=== PATIENT | female | born 1990 | race Two or more races ===

== ENCOUNTER 2023-11-24 09:48 | Outpatient (REF) | payer OTHER, SELFPAY ==
--- NOTE | ~2023-11-24 | US_ITS ---
EXAMINATION: US PELVIS CLINICAL INFORMATION: IUD string long on exam, check IUD position. COMPARISON: None available. TECHNIQUE: Ultrasound of the pelvis is performed using both transabdominal and transvaginal transducers along with Doppler. Transvaginal imaging is performed due to inadequate visualization transabdominally. FINDINGS: The uterus measures 8.2 x 4.1 x 5.2 cm. No discrete fibroids are identified. IUD appears to be abnormally positioned and appears to be located at the level of the lower uterine segment with possible rotation of the midportion of the IUD within the myometrium. This study was performed unmonitored without a radiologist in attendance. Images were provided on 12/01/2023 for interpretation. Gynecologic consultation recommended to determine further management including possible removal/repositioning of the IUD. Endometrial thickness is 0.7 cm. No significant free fluid in the pelvis. Right ovary measures 8.2 x 4.1 x 5.2 cm, volume 8.1 mL. Left ovary measures 2.9 x 1.9 x 2.8 cm, volume 12.4 mm. Bilateral ovaries are grossly unremarkable, although visualization is limited due to bowel gas. US/US pelvic and transvaginal IMPRESSION: IUD appears to be abnormally positioned and appears to be located at the level of the lower uterine segment with possible rotation of the midportion of the IUD within the myometrium. Gynecologic consultation recommended to determine further management including possible removal/repositioning of the IUD. This study was presented today 12/01/2023 at 9:25 AM for interpretation. [facility] staff will provide results to referring provider at this time.
== END 2023-11-24 09:49 | disposition home or self-care (01) ==
LOC: HO.UMASIMG 09:48
PROVIDERS: PCP Nurse Practitioner Women's Health; Visit Provider Nurse Practitioner Women's Health
DX: T83.89XA Other specified complication of genitourinary prosthetic devices, implants and grafts, initial encounter (principal); Z30.431 Encounter for routine checking of intrauterine contraceptive device
CPT/HCPCS: 76830; 76856

== ENCOUNTER 2024-05-03 08:42 | Outpatient (REF) | payer OTHER, SELFPAY ==
--- NOTE | ~2024-05-03 | US_ITS ---
EXAMINATION: US PELVIS CLINICAL INFORMATION: Previous IUD removed with replacement, question positioning. COMPARISON: None available. TECHNIQUE: Ultrasound of the pelvis is performed using both transabdominal and transvaginal transducers along with Doppler. Transvaginal imaging is performed due to inadequate visualization transabdominally. FINDINGS: The uterus is anteverted and measures 9.8 x 4.1 x 5.[address] within the endometrial cavity. Endometrial thickness is 3 mm. There is no significant free fluid. Right ovary is unremarkable and measures 2.4 x 3.4 x 2.4 cm, volume 10.2 mL. Left ovary measures 4.4 x 1.3 x 1.1 cm, volume 3.3 mL. Left ovarian 1.6 x 1.2 x 1.7 cm cyst appears simple, likely physiologic. US/US pelvic and transvaginal IMPRESSION: IUD in place within the endometrial cavity. Left ovarian 1.6 x 1.2 x 1.7 cm cyst appears simple, likely physiologic.
== END 2024-05-03 08:43 | disposition home or self-care (01) ==
LOC: HO.UMASIMG 08:42
PROVIDERS: Visit Provider Nurse Practitioner Women's Health
DX: Z30.430 Encounter for insertion of intrauterine contraceptive device (principal)
CPT/HCPCS: 76830; 76856